=== PATIENT | male | born 1970 | race Two or more races ===

== ENCOUNTER 2024-12-12 23:14 | Emergency (ER) | payer BC, SELFPAY ==
[2024-12-12 23:15] VITALS: BMI 22.4
[2024-12-13 00:02] VITALS: BP 158/93; PULSE 88; RESP 20; TEMP 36.8; O2SAT 98
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
--- NOTE | 2024-12-13 00:12 | XR_ITS ---
Examination: PA lateral chest 2 views Technique: Upright PA lateral chest 2 views Indications: Onset chest pain today. Findings: Normal heart size Minor parenchymal disease at the left cardiac apex No pulmonary edema Mild thoracic spondylosis Impression: Minor parenchymal disease in the left cardiac apex, probable scarring but clinical correlation advised
--- NOTE | 2024-12-13 00:12 | EKG_ITS ---
[facility] Test Date: 2024-12-13 Pat Name: MARANDA VEGA Department: Room: - Gender: Male [employer]: : 1970 Requested By: Isabel Arevalo Order Number: [id number] Reading MD: Isabel Arevalo Measurements Intervals [place] Rate: 80 P: 61 IL: 149 QRS: -56 QRSD: 98 T: 83 QT: 358 QTc: 414 Interpretive Statements SINUS RHYTHM INDETERMINATE AXIS INCOMPLETE RIGHT BUNDLE BRANCH BLOCK [90+ ms QRS DURATION, TERMINAL R IN V1/V2, 40+ ms S IN I/aVL/V4/V5/V6] LEFT ANTERIOR FASCICULAR BLOCK [QRS AXIS <= -45, QR IN I, RS IN II] SEPTAL MYOCARDIAL INFARCTION , OF INDETERMINATE AGE [40+ ms Q WAVE IN V1/V2] POSSIBLE LATERAL MYOCARDIAL INFARCTION , OF INDETERMINATE AGE [30 ms Q WAVE IN I/aVL/V5/V6] No previous ECG available for comparison /[id number]/[email or web address]/[id number].pdf
[2024-12-13 00:44] LABS: Basophils # (Auto) 0.1 Thou/mm3 (0.0-0.2); Basophils % (Auto) 1 % (0-2.5); Eosinophils # (Auto) 0.3 Thou/mm3 (0.0-0.5); Eosinophils % (Auto) 2 % (0-10); Hematocrit 45.6 % (41.0-53.0); Immature Granulocytes % (Auto) 0 % (0-0); Immature Granulocytes Auto 0.06 Thou/mm3 (0.00-0.00); Lymphocytes # (Auto) 2.8 Thou/mm3 (1.0-4.8); Lymphocytes % (Auto) 20 % (10-50); Mean Corpuscular HGB Conc 35.1 g/dl (31.0-37.0); Mean Corpuscular Hemoglobin 30.2 pg (25.0-35.0); Mean Corpuscular Volume 86 fL (80-100); Monocytes # (Auto) 1.1 Thou/mm3 (0.0-0.8); Monocytes % (Auto) 8 % (0-12); Neutrophils # (Auto) 9.8 Thou/mm3 (1.8-7.7); Neutrophils % (Auto) 70 % (37-80); Nucleated Red Blood Cell % 0 /100 WBC (0); Platelet Count 207 Thou/mm3 (140-440); RDW Standard Deviation 38.6 fL (35.1-43.9); White Blood Count 14.2 Thou/mm3 (3.8-10.6)
[2024-12-13 01:16] LABS: B-Type Natriuretic Peptide < 20 pg/mL (0-100)
[2024-12-13 01:27] LABS: Alanine Aminotransferase 14 U/L (10-49); Albumin, Serum 4.7 gm/dL (3.5-5.0); Albumin/Globulin Ratio 1.9 (1.2-2.2); Alkaline Phosphatase 77 U/L (46-116); Anion Gap 12 (7-16); Aspartate Amino Transferase 12 U/L (0-34); BUN/Creatinine Ratio 15 Ratio (12-20); Bilirubin,Total 0.2 mg/dL (0.3-1.2); Blood Urea Nitrogen 15 mg/dL (9-23); Carbon Dioxide 22.2 mMol/L (20.0-31.0); Chloride 107 mMol/L (98-107); Estimated Creatinine Clearance 88.4 mL/min (>60); Globulin 2.5 gm/dL (2.3-3.5); Glucose 115 mg/dL (74-106); Osmolality,Calculated 283 (275-295); Potassium 4.3 mMol/L (3.4-5.1); Sodium 141 mMol/L (136-145); Total Protein 7.2 gm/dL (5.7-8.2); Troponin I < 0.002 ng/mL (0.0-0.045); eGFR > 60 See Note
[2024-12-13 02:13] VITALS: BP 165/92; PULSE 91; RESP 20; TEMP 36.8; O2SAT 97
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
[2024-12-13 03:25] LABS: Troponin I < 0.020 ng/mL (0.0-0.045)
[2024-12-13 04:07] VITALS: BP 127/87; PULSE 71; RESP 18; TEMP 36.8; O2SAT 99
== END 2024-12-13 04:07 | disposition home or self-care (01) ==
PROVIDERS: Nurse Practitioner Family; Emergency Provider Emergency Medicine; PCP Family Medicine
DX: R07.89 Other chest pain (principal)
CPT/HCPCS: 36415; 71046; 80053; 83880; 84484; 85025; 93005; 99283

== ENCOUNTER → 2024-12-21 | Outpatient (CLI) | payer BC, SELFPAY ==
--- NOTE | 2024-12-21 13:37 | XR_ITS ---
Examination: Knee, right , 3 views Technique: Knee AP, lateral, oblique 3 views Date and time of exam: December 21, 2024 1400 hours INDICATIONS: Right knee pain beginning 2 months ago. FINDINGS: Moderate osteopenia. No fracture or dislocation No significant joint narrowing IMPRESSION: No fracture or dislocation No significant arthritic change
== END | disposition home or self-care (01) ==
PROVIDERS: PCP Family Medicine; Referring Provider Family Medicine; Visit Provider Family Medicine
DX: M25.561 Pain in right knee (principal)
CPT/HCPCS: 73562

== ENCOUNTER → 2024-12-23 | Outpatient (CLI) | payer BC, SELFPAY ==
[2024-12-23 12:45] LABS: Glucose Estimated Average 111 mg/dL (80-131); Hemoglobin A1C 5.5 % Hgb (4.8-6.0)
[2024-12-23 13:03] LABS: Alanine Aminotransferase 15 U/L (10-49); Albumin, Serum 4.5 gm/dL (3.5-5.0); Alkaline Phosphatase 63 U/L (46-116); Aspartate Amino Transferase 15 U/L (0-34); Bilirubin,Direct 0.3 mg/dL (0.0-0.3); Total Protein 6.7 gm/dL (5.7-8.2)
[2024-12-23 13:17] LABS: Cardiac Risk Estimate 3.4 RATIO (4.0-6.7); Cholesterol 168 mg/dL (132-200); HDL Cholesterol 49 mg/dL (40-60); LDL Cholesterol,Calculated 91 mg/dL (0-130); Triglycerides 138 mg/dL (30-150)
[2024-12-27 06:47] LABS: Fecal Globin Result NOT DETECTED (NOT DETECTED)
== END | disposition home or self-care (01) ==
PROVIDERS: PCP Family Medicine; Referring Provider Family Medicine; Visit Provider Family Medicine
DX: Z00.00 Encounter for general adult medical examination without abnormal findings (principal); G58.9 Mononeuropathy, unspecified; R73.9 Hyperglycemia, unspecified; Z12.11 Encounter for screening for malignant neoplasm of colon; Z12.12 Encounter for screening for malignant neoplasm of rectum
CPT/HCPCS: 36415; 80061; 80076; 82274; 83036; G0328